=== PATIENT | male | born 2000 | race African-American/Black ===

== ENCOUNTER 2020-06-10 20:20 | Emergency (ER) | payer SELFPAY ==
[2020-06-10] MEDS ORDERED: Ketorolac Tromethamine 30 MG/ML VIAL ONE (23:34)
== END 2020-06-11 00:10 | disposition home or self-care (01) ==
LOC: ERS 20:20
DX: M54.2 Cervicalgia (principal); X50.0XXA Overexertion from strenuous movement or load, initial encounter
CPT/HCPCS: 96372; 99283; J1885